=== PATIENT | male | born 1945 | race Caucasian/White ===

== ENCOUNTER 2018-10-05 13:10 | Observation (INO) | payer MEDICARE ==
[~2018-10-05] VITALS: Ht 170.2 cm; Wt 101.5 kg
[2018-10-05] VITALS (12 sets, daily range): BP systolic 119–134; BP diastolic 54–63
[~2018-10-05 13:10] MED LIST: CARVEDILOL12.5 MG PO; COQ-10100 MG PO; COZAAR 50 MG TA50 M2 PO; CRESTOR10 MG PO; FISH OIL 1,001000 M2 PO; VITAMIN D1000 UNI1 PO
--- NOTE | 2018-10-05 13:30 | NUR ---
SEE CODE STEMI SHEET FOR INFORMATION.
[2018-10-05] MEDS ORDERED: CHLORTHALIDONE25 MG PO (13:37)
[2018-10-05] MEDS ORDERED: VITAMIN C100 MG PO (13:37)
[2018-10-05 13:38] LABS: ABSOLUTE BASOPHILS 0.1 thou/uL (0.0-0.2); ABSOLUTE EOSINOPHILS 0.2 thou/uL (0.0-0.7); ABSOLUTE LYMPHOCYTES 0.8 thou/uL (0.8-5.3); ABSOLUTE MONOCYTES 1.8 thou/uL (0.0-1.2); BASOPHILS 0.4 %; EOSINOPHILS 1.3 %; HEMATOCRIT 35.4 % (42.0-52.0); HEMOGLOBIN 12.1 gm/dL (14.0-18.0); LYMPHOCYTES 6.3 %; MCHC 34.1 g/dL (28.0-37.0); MCV 96.7 fL (80.0-100.0); MONOCYTES 14.3 %; MPV 7.5 fl. (7.2-11.1); NUCLEATED RBCS 0 /100WBC; PLATELET COUNT* 221 thou/uL (150-400); POLYS 77.7 %; RBC 3.66 mil/uL (4.50-6.00); RDW-CV 12.5 % (10.5-14.5); WBC 12.9 thou/uL (4.0-11.0)
[2018-10-05] MEDS ORDERED: VITAMIN B-12500 MCG PO (13:38)
[2018-10-05] MEDS ORDERED: CLOPIDOGREL75 MG PO (13:38)
[2018-10-05] MEDS ORDERED: IRON325 PO (13:38)
[2018-10-05] MEDS ORDERED: CO Q-10100 MG PO (13:38)
[2018-10-05] MEDS ORDERED: GLUCOSAMINE CH1 EAC8 PO (13:39)
[2018-10-05] MEDS ORDERED: BENICAR20 MG PO (13:39)
[2018-10-05] MEDS ORDERED: PROTONIX40 M1 PO (13:39)
[2018-10-05] MEDS ORDERED: FIBERCON625 M1 PO (13:40)
[2018-10-05] MEDS ORDERED: PRAVASTATIN SOD20 MG PO (13:40)
[2018-10-05] MEDS ORDERED: SERTRALINE HCL50 MG PO (13:41)
[2018-10-05] MEDS ORDERED: PRESERVISION A1 EAC2 PO (13:41)
[2018-10-05] MEDS ORDERED: THERAGRAN-M PR1 EAC1 PO (13:41)
[2018-10-05 13:46] LABS: ANION GAP 8 mmol/L (7-16); BUN 26 mg/dL (7-18); CALCIUM 8.7 mg/dL (8.5-10.1); CHLORIDE 95 mmol/L (98-107); CO2 28 mmol/L (21-32); CREATININE 1.2 mg/dL (0.6-1.3); GLUCOSE 114 mg/dL (70-99); POTASSIUM 4.2 mmol/L (3.5-5.1); SODIUM 131 mmol/L (136-145)
[2018-10-05 13:50] LABS: APTT 27.2 Seconds (25.0-31.3); PROTIME 10.5 Seconds (9.20-11.50)
[2018-10-05 13:56] LABS: ALBUMIN 3.6 g/dL (3.4-5.0); ALKALINE PHOSPHATASE 67 U/L (46-116); NT-PRO BRAIN NAT PEPTIDE 249 pg/mL (<300); SGOT 15 U/L (15-37); SGPT 26 U/L (30-65); TOTAL BILIRUBIN 0.6 mg/dL (<0.1-1.0); TOTAL PROTEIN 7.2 g/dL (6.4-8.2); TROPONIN-I LEVEL <0.06 ng/mL (<0.06)
--- NOTE | 2018-10-05 17:07 | EKG ---
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: [place] : 1945 Requested By: Beata Baldwin Order Number: [id number] MD: Kody Eng Measurements Intervals [place] Rate: 71 P: -35 [place]: 51 QRS: 24 QRSD: 105 T: 71 QT: 396 QTc: 431 Interpretive Statements Sinus rhythm ST elevation, consider inferior injury Compared to ECG 03/11/2016 10:32:11 ST (T wave) deviation now present Myocardial infarct finding now present Electronically Signed On 10-05-2018 17:07:02 CDT by Kody Eng [email or web address] <ELECTRONICALLY SIGNED> By: Kody Eng MD, FACC 10/05/18 1707 1322 1322 Kody Eng MD, FAC /EPI
--- NOTE | 2018-10-05 18:14 | CARD ---
[address] [address] CARDIAC CATH REPORT Name: OSIRIS FISHER Room: [address] IN .R.#: [id number] Admission: 10/05/18 Attend Phys: Kody Eng MD Discharge: Date of : 49 Report #: [id number] THIS REPORT FOR: //name// APPROVED REPORT Study performed: 10/05/2018 13:27:13 Patient Details Patient Status: ED Room #: The patient is a 73 year-old male Event Personnel Eran Martinez Teacher Selection Specialist, Brook Baker RN Hides Inspector, Esau Cook (R) Monitor, Maria Elena Malin RTR Scrub, Gigi Hinojosa SENIOR MOBILE APPLICATION DEVELOPER Scrub, Serenity Chiang RTR Monitor Procedures Performed JOHN Place w/wo Plasty Single CIRC [id number] JOHN Place w/wo Plasty Single LAD 333883 Indication Chest pain Risk Factors Arterial Hypertension, Hypercholesterolemia, Coronary Artery Disease Admission/Lab Medications/Medications given during procedure Glycoprotein IllbIlla Inhibitors, Heparin Unfract. Procedure Narrative The patient was brought urgently to the Cardiac Catheterization Laboratory and was prepped and draped in a sterile manner. The right wrist was infiltrated with 1% Lidocaine subcutaneous anesthesia. A Slender Glidesheath sheath was inserted into the right radial artery. Coronary angiography was performed using coronary diagnostic catheters. The right coronary system was accessed and visualized with a JR4 catheter. The left coronary system was accessed and visualized with a JL4 catheter. Closure device was deployed with a 6 Fr Vasc-Band Reg 24cm. The patient tolerated the procedure well and there were no complications associated with the procedure. There was no hematoma. Intraoperative [place] [address] CARDIAC CATH REPORT Name: OSIRIS FISHER Room: [address] IN [facility]#: [id number] Admission: 10/05/18 Attend Phys: Kody Eng MD Discharge: Date of : 49 Report #: [id number] Sedation start time: 1404 Case end Time: 1514 Fentanyl 50 mcg Versed 1 mg Fluoro Time: 26.5 minutes Dose: DAP 311948 cGycm2 3476 mGy Contrast Type and Amount: Visipaque 240 ml Coronary Angiography The patient's coronary anatomy is right dominant. Diagnostic Cath Left Main 0% stenosis LAD 80% mid stenosis noted followed by a more distal 50% stenosis Circumflex long 90% stenosis noted in the mid circumflex Right Coronary 30% proximal stenosis noted RPLV 50% mid stenosis noted Left Ventriculography Left Ventriculography was not performed. Hemodynamics The aortic pressure is 107/52 mmHg with a mean of 65 mmHg. PCI Technique Lesion Anticoagulation was achieved with Heparin. bolus of iv aggrastat given Patient was preloaded with Plavix. Percutaneous coronary intervention was performed on the mid left anterior descending artery segment. The lesion stenosis prior to intervention was 80% with ROSSY 3 flow. A 6F XB 4.0 Guide Catheter was used to engage the lm ostium. A IG: BMW 190cm Interventional Guidewire was used to cross the lesion. BALLOON DILATION A Balloon catheter Trek RX 2.5 X 12 was inserted and inflated up to 16.00atm for 10seconds. Repeat angiography revealed the following post-dilatation results: 50% stenosis. Additional Inflation: 16.00atm for 7seconds. STENT DEPLOYMENT A bare metal stent Vision RX 2.75 X 12 was inserted and inflated up to 16.00atm for 13seconds. Repeat angiography revealed the following post-stent deployment results: 0% stenosis. Additional Inflation: 18.00atm for 14seconds. Tortuous aorta made torqueing the catheter difficult. A kink was noted to occur in the distal [place] [address] CARDIAC CATH REPORT Name: OSIRIS FISHER Room: [address]#: [id number] Admission: 10/05/18 Attend Phys: Kody Eng MD Discharge: Date of : 49 Report #: [id number] Unable to advance drug eluting stent nor 3.0 x 15 mm bare metal stent to area of stenosis because of tortuous lad. Use of ann wire allowed placement of 2.75 x 12 mm bare metal stent to area of stenosis. Spasm appeared to occur in mid lad after straightening vessel with ann wire. Final angiography reveals 0 % stenosis with ROSSY 3 flow. PCI Technique Lesion 2 Percutaneous Coronary Intervention was performed on the mid circumflex artery segment. Patient was preloaded with Plavix. Percutaneous coronary intervention was performed on the mid circumflex artery segment. The lesion stenosis prior to intervention was 90% with ROSSY 3 flow. A 6F XB 4.0 Guide Catheter was used to engage the lm ostium. A IG: BMW 190cm Interventional Guidewire was used to cross the lesion. Balloon Dilation A Balloon catheter Trek RX 2.5 X 12 was inserted and inflated up to 14.00atm for 13seconds. Repeat angiography revealed the following post-dilatation results: 50% stenosis. Additional Inflation: 16.00atm for 12seconds. Additional Inflation: 16.00atm for 7seconds. Because of tortuous aorta, torqueing of guiding catheter was difficult. A kink was noted to develop in the distal guideing catheter. Unalbe to advance drug eluting stent to area of stenosis. Use of ann wire allowed advancement of bare metal stent to area of stenosis. Stent Deployment A bare metal stent CATH VISION RX 3.0 X 23 was inserted and inflated up to 9.00atm for 12seconds. Repeat angiography revealed the following post-stent deployment results: 0% stenosis. Additional Inflation: 11.00atm for 14seconds. Final angiography reveals 0 % stenosis with ROSSY 3 flow. Conclusion 1. 80% stenosis of mid lad, and 90% stenosis of mid circumflex 2. Difficulty advancing drug eluting stents to area of stenosis because of tortuous vessels. 3. successful placement of bare metal stents in mid lad and circumflex 4. If repeat coronary intervention required, consider performing from the femoral approach to allow extra support. Recommendations [address] [address] CARDIAC CATH REPORT Name: OSIRIS FISHER Room: [facility] IN [place]al.#: [id number] Admission: 10/05/18 Attend Phys: Kody Eng MD Discharge: Date of : 49 Report #: [id number] Cardiac Rehabilitation Referral [facility] <ELECTRONICALLY SIGNED> By: Eran Martinez MD, FACC 10/05/18 181 13 1814Dcortez Martinez MD, FACC /INF
--- NOTE | 2018-10-05 18:33 | NUR ---
RECEIVED REPORT FROM DAYANNA POOL IN MANAGEMENT ASSISTANT. PT TRANSFERED TO [facility] FLOOR AROUND 1540, ASSUMED CARE. PT A&O X4. VSS. HEAD START ASSISTANT TEACHER PLACED TRACING SR WITH 1ST DEGREE AV BLOCK. PT ORIENTED TO ROOM BED AND CALL LIGHT. VITALS PER POST CATH PROTOCOL. RIGHT RADIAL SITE FREE FROM BLEEDING; IN PROCESS OF LETTING AIR OUT OF VASCBAND. AT BEDSIDE. MEDS PER EMAR. PT DENIES PAIN. PT TOLERATING DIET. UP WITH SBA TO BATHROOM TO VOID. PT HOPEFUL TO GO HOME TOMORROW. PT CURRENTLY SITTING UP IN BEDSIDE CHAIR. LOW FALL RISK PRECAUTIONS IN PLACE. CALL LIGHT IS WITHIN REACH. HOURYL ROUNDING PERFORMED. WCTM FOR DURATION OF SHIFT.
--- NOTE | 2018-10-05 20:00 | NUR ---
RECEIVED REPORT AND ASSUMED CARE OF PT, ASSESSMENT COMPLETED. DECREASING PRESSURE IN BAND. C/O NUMBNESS IN RT THUMB, ABLE TO MOVE FINGERS WITH GOOD CAP REFILL. TELEMETRY ON SHOWING SR WITH 1ST AVB AND BBB. AT BEDSIDE AND STAYING THE NIGHT. WILL CONT TO MONITOR AND ASSIST NEEDED.
[2018-10-06] VITALS: BP 155/68
[2018-10-06 04:00] VITALS: BP 133/53
--- NOTE | 2018-10-06 07:00 | NUR ---
SLEPT WELL. UP TO BR AND BACK WITH STEADY GAIT. INITALLY WAS HAVING CHEST PAIN WITH DEEP BREATHS BUT SUBSIDED THIS AM. TELEMETRY CONT TO SHOW SR WITH 1ST AVB AND BBB. RT WRIST REMAINS INTACT WITHOUT HEMATOMA OR DRAINAGE. NO CHANGE IN ASSESSMENT. HS GOALS OF REST AND SAFETY ACHIEVED. HOURLY ROUNDING OBSERVED.
[2018-10-06 07:28] LABS: HEMATOCRIT 33.3 % (42.0-52.0); HEMOGLOBIN 11.3 gm/dL (14.0-18.0); MCV 96.9 fL (80.0-100.0); MPV 7.9 fl. (7.2-11.1); RBC 3.43 mil/uL (4.50-6.00); RDW-CV 12.5 % (10.5-14.5); WBC 15.7 thou/uL (4.0-11.0)
[2018-10-06 07:30] VITALS: BP 162/53
[2018-10-06 07:45] LABS: ANION GAP 9 mmol/L (7-16); BUN 21 mg/dL (7-18); CALCIUM 9.3 mg/dL (8.5-10.1); CHLORIDE 97 mmol/L (98-107); CHOLESTEROL 123 mg/dL (<200); CO2 25 mmol/L (21-32); GLUCOSE 184 mg/dL (70-99); HDL CHOLESTEROL 56 mg/dL (>40); LDL CHOLESTEROL 58 mg/dL (<100); SERUM ASSESSMENT Clear; SODIUM 131 mmol/L (136-145); TC:HDL 2.2 Ratio (Not establshd); TRIGLYCERIDE 48 mg/dL (<150); TROPONIN-I LEVEL 0.35 ng/mL (<0.06); VLDL 10 mg/dL (<40)
--- NOTE | 2018-10-06 09:17 | EKG ---
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: : 1945 Requested By: Eran Martinez Order Number: [id number] Delroy MD: Eran Martinez Measurements Intervals [place] Rate: 72 P: -46 [place]: 255 QRS: 12 QRSD: 85 T: 64 QT: 393 QTc: 431 Interpretive Statements Sinus or ectopic atrial rhythm Prolonged MI interval ST elevation suggests acute pericarditis Baseline wander in lead(s) V1 Compared to ECG 10/05/2018 13:22:29 Ectopic atrial rhythm now present ST (T wave) deviation still present Electronically Signed On 10-06-2018 9:17:25 CDT by Eran Martinez [email or web address] <ELECTRONICALLY SIGNED> By: Eran Martinez MD, [facility] 10/06/18 0917 172 172 Eran Martinez MD, [facility] /EPI
[2018-10-06] MEDS ORDERED: PRAVACHOL20 MG PO (10:15)
[2018-10-06] MEDS ORDERED: TYLENOL325 MG PO (10:26)
[2018-10-06] MEDS ORDERED: NITROGLYCERIN0.4 MG SUBLING (10:27)
[2018-10-06] MEDS ORDERED: CILOSTAZOL 100100 M1 PO (10:28)
--- NOTE | 2018-10-06 10:29 | D ---
[facility] [address] [place] [address] DISCHARGE SUMMARY Name: OSIRIS FISHER Room: [address] IN .R.#: [id number] Admission: 10/05/18 Attend Phys: Kody Eng MD Discharge: Date of : 49 Report #: [id number] THIS REPORT FOR: //name// CC: [facility] physician/PCP AISHA Eng DATE OF SERVICE: 10/06/2018 DISCHARGE DIAGNOSES: 1. Unstable angina. 2. Coronary artery disease. 3. Hypertension. 4. Hyperlipidemia. 5. Aspirin allergy. 6. History of anemia. CONSULTANTS: None. PROCEDURES: Urgent coronary angiography with placement of bare metal stents in the circumflex and left anterior descending artery via the radial artery. HISTORY OF PRESENT ILLNESS: The patient is a 73-year-old white male who came to the Emergency Room complaining of chest pain. The patient apparently had a heart catheterization years ago at [facility] and was found to have only mild coronary artery disease. He did not require stenting at that time. He has been followed by a dental laboratory worker in [facility] since that time. He apparently had a stress test last year and was told there was no significant progression of his coronary artery disease. The patient stays active, mowing the yard. He was doing well until the day of admission. He had pain in his chest, became short of breath, diaphoretic, and had some arm pain. He went to urgent care at [facility]. He was noted to have ECG changes and he was transferred to [facility] for cardiac evaluation. On arrival here, his pain had improved. PAST MEDICAL HISTORY: He has had no major surgical procedures. He has a history of hypertension, hyperlipidemia. Apparently, in the past he was given Plavix and was noted to be anemic. He had upper and lower endoscopy. No source of bleeding was noted. He has been on iron supplements. CURRENT MEDICATIONS: Consist of carvedilol, chlorthalidone, Plavix, iron, Benicar, Protonix, Pravachol, Zoloft. ALLERGIES: He has a true ASPIRIN allergy having his lips swell. PHYSICAL EXAMINATION: [place] [address] DISCHARGE SUMMARY Name: OSIRIS FISHER Room: [address]#: [id number] Admission: 10/05/18 Attend Phys: Kody Eng MD Discharge: Date of : 49 Report #: [id number] GENERAL: Revealed an elderly male, appeared in mild distress. VITAL SIGNS: Blood pressure 126/50. His pulse is 70, he is afebrile. HEENT: He was anicteric. Mucous membranes moist. NECK: Veins do not appear distended. CHEST: Clear to auscultation. CARDIAC: Regular rate and rhythm. ABDOMEN: Obese. EXTREMITIES: Had no pitting edema. DIAGNOSTIC DATA: His ECG showed a sinus rhythm with minimal ST elevation in lead II, but no reciprocal changes. His workup, he had a portable chest x-ray that showed normal heart size, clear lung thompson. LABORATORY WORK: Sodium 131, creatinine 1.0, glucose was 105. Liver function studies were normal. Troponin 0.06. Cholesterol 123, triglyceride 48, HDL 56, LDL 58. White blood cell count 12.9, hemoglobin 12.1. HOSPITAL COURSE: The patient was felt to be having an acute coronary syndrome. There was no evidence of a STEMI. He was seen by my partner, Dr. Eng in the Emergency Room. I performed emergent cardiac catheterization from the right radial artery. No ventriculogram was performed. He was noted to have a discrete 80% narrowing of the mid LAD and a 90% narrowing of the mid circumflex artery. The right coronary artery had only 30% stenosis. He was given heparin and Aggrastat. The patient had been on Plavix. Again, he has an ASPIRIN allergy. His aorta was noted to be tortuous, making the procedure difficult. If further intervention was necessary, I would consider performing the procedure from the femoral artery. I first performed balloon angioplasty of the circumflex. Because of tortuosity, additional ann wire support was required. I was unable to place a drug-eluting stent. However, I placed a bare metal stent. The circumflex was a good result. I then performed balloon angioplasty of the left anterior descending. Again, because of tortuosity, ann support wire was required to place a bare metal stent in the LAD. Again, I could not place a drug-eluting stent. He tolerated the procedure well. He had no further chest pain, arrhythmias or heart failure. Prior to discharge, the patient ambulated without any further complaints. Additional lab work following the procedure included a creatinine 1.0. His troponin was noted increased to 0.35. Followup ECG showed a sinus rhythm with no significant ST segment changes. Prior to discharge, the patient was ambulating in the halls. He had no hematoma in the wrist. He was discharged on his home medications that included carvedilol 12.5 mg twice a day, chlorthalidone 25 mg a day, Plavix 75 mg a day. Because of his ASPIRIN allergy, he was sent home on Pletal 100 mg twice a day, which he takes for at least several months following placement of stents. He was to continue iron supplements because of history of anemia. He was to continue Benicar 20 mg a day for hypertension, Protonix 40 mg a day, Pravachol 20 mg a day, sertraline 50 mg a day. He was given a prescription for nitroglycerin to take as needed for chest pain. He [place] [address] DISCHARGE SUMMARY Name: OSIRIS FISHER Room: [address] IN [facility].#: [id number] Admission: 10/05/18 Attend Phys: Kody Eng MD Discharge: Date of : 49 Report #: [id number] Sloan for routine medical care including management of his hypertension. At the time of discharge, he had blood pressure of 140/60, pulse 90 and he is afebrile. He is scheduled to see my nurse practitioner in 1 week. I did recommend he enroll in cardiac rehabilitation here at [facility]. I plan on seeing him in the Cardiology Clinic in 8 weeks for followup. <ELECTRONICALLY SIGNED> By: Eran Martinez MD, [facility] 10/06/18 1029 0823 0948Dalizzy Martinez MD, [facility] /
[2018-10-06] MEDS ORDERED: CARVEDILOL12.5 MG PO (10:32)
[2018-10-06 10:39] VITALS: BP 162/53
--- NOTE | 2018-10-06 12:29 | NUR ---
ASSUMED PT CARE AT 0800, AOX4, UP AD JESSENIA, O2 SAT 90'S RA. TRACING SR, 1ST DEGREE ON TELE. DENIES PAIN. PT CATH SITE INTACT. PT FOR DISCHARGE. VSS, AM ASSESSMENT CHARTED. MEDS GIVEN PER MAR. HOURLY ROUNDING CALL LIGHT WITHIN REACH. WILL CONTINUE TO MONITOR.
[2018-10-06 12:49] VITALS: BP 162/53
--- NOTE | 2018-10-06 14:00 | 2DMMODE ---
[place] [address] 2 D/M-MODE ECHOCARDIOGRAM Name: OSIRIS FISHER Room: [address] Bob Roman#: [id number] Admission: 10/05/18 Attend Phys: Kody Eng, Discharge: 10/06/18 Date of : 49 Date of Service: 10/06/18 1400 Report #: [id number] THIS REPORT FOR: //name// APPROVED REPORT Study performed: 10/06/2018 09:45:22 EXAM: Comprehensive 2D, Doppler, and color-flow Echocardiogram Patient Location: In-Patient Room #: 220 Status: routine BSA: 2.12 HR: 96 bpm BP: 162/53 mmHg Rhythm: NSR Other Information Study Quality: Good Indications Acute NY Chest Pain 2D Dimensions IVSd: 13.20 (7-11mm) LVOT Diam: 19.21 (18-24mm) LVDd: 48.45 mm PWd: 11.44 (7-11mm) Ascending Ao: 34.37 (22-36mm) LVDs: 24.55 (25-40mm) Aortic Root: 33.36 mm Volumes Left Atrial Volume (Systole) LA ESV Index: 28.50 mL/m2 Aortic Valve AoV Peak Moreno.: 2.44 m/s AO Peak Gr.: 23.78 mmHg LVOT Max P.85 mmHg AO Mean Gr.: 13.09 mmHg LVOT Mean P.11 mmHg LVOT Max V: 1.57 m/s AO V2 VTI: 42.45 cm LVOT Mean V: 1.04 m/s FISH (VTI): 2.22 cm2 LVOT V1 VTI: 32.53 cm Mitral Valve E/A Ratio: 0.83 MV Decel. Time: 144.14 [place] [address] 2 D/M-MODE ECHOCARDIOGRAM Name: OSIRIS FISHER [address] [id number] Admission: 10/05/18 Attend Phys: Kody Eng, Discharge: 10/06/18 Date of : 49 Date of Service: 10/06/18 1400 Report #: [id number] MV E Max Moreno.: 1.14 m/s MV PHT: 41.80 ms MVA (PHT): 5.26 cm2 TDI E/Lateral E': 12.67 E/Medial E': 10.36 Medial E' Moreno.: 0.11 m/s Lateral E' Moreno.: 0.09 m/s Pulmonary Valve PV Peak Moreno.: 1.57 m/s PV Peak Gr.: 9.83 mmHg Tricuspid Valve RAP Estimate: 5.00 mmHg TR Peak Gr.: 36.16 mmHg RVSP: 41.00 mmHg PA Pressure: 41.00 mmHg Left Ventricle The left ventricle is normal size. There is normal LV segmental wall motion. Mild concentric left ventricular hypertrophy. Left ventricular systolic function is normal. The left ventricular ejection fraction is within the normal range. LVEF is 65-70%. Grade I - abnormal relaxation pattern. Right Ventricle The right ventricle is normal size. The right ventricular systolic function is normal. Atria Left atrium is mildly dilated. The right atrium size is normal. Aortic Valve Mild aortic valve sclerosis. No aortic regurgitation is present. There is no aortic valvular stenosis. Mitral Valve The mitral valve is normal in structure. There is no mitral valve regurgitation noted. No evidence of mitral valve stenosis. Tricuspid Valve The tricuspid valve is normal in structure. Trace tricuspid regurgitation. estimated pa pressure 45 mm Hg Pulmonic Valve The pulmonary valve is normal in structure. [place] [address] 2 D/M-MODE ECHOCARDIOGRAM Name: TUYETPAULETTE SALGUEROALONDRA Marino [address] [id number] Admission: 10/05/18 Attend Phys: Kody Eng, Discharge: 10/06/18 Date of : 49 Date of Service: 10/06/18 1400 Report #: [id number] regurgitation. Great Vessels The aortic root is normal in size. IVC is normal in size and collapses >50% with inspiration. Pericardium There is no pericardial effusion. <Conclusion> Mild concentric left ventricular hypertrophy. LVEF is 65-70%. Left atrium is mildly dilated. Mild aortic valve sclerosis. <ELECTRONICALLY SIGNED> By: Eran Martinez MD, FACC 10/06/18 1400 1400 1400 Eran Martinez MD, FACC /INF
--- NOTE | 2018-10-06 14:32 | NUR ---
DISCHARGED PLAN DISCUSSED WITH PT. MEDICATION PACKET/SCRIPT GIVEN. CATH SITE CARE ADVISED. IV, TELE REMOVED. REMINDED TO FOLLOW UP WITH CARDIOLIGY, PCP. ALL BELONGINGS PACKED AND CHECKED. LEFT THE UNIT AMBULATORY 1300.
--- NOTE | 2018-10-07 13:06 | CON ---
[address] [address] CONSULTATION Name: OSIRIS FISHER Room: [address] Bob Roman#: [id number] Admission: 10/05/18 Attend Phys: Kody Eng MD Discharge: 10/06/18 Date of : 49 Report #: [id number] THIS REPORT FOR: //name// CC: Dr. Sloan [facility] physician/PCP Kody Eng DATE OF SERVICE: 10/05/2018 CARDIOLOGY CONSULT INDICATION: Acute chest pain with ST elevations consistent with ST elevation myocardial infarction. HISTORY OF PRESENT ILLNESS: The patient is a very pleasant 73-year-old gentleman with history of coronary artery disease based on previous catheterization. Apparently at that time, there was note of occlusive disease that was not intervened upon due to an aspirin allergy. He has been on Plavix 75 mg daily. He had been in his usual state of health until last night when he started to have some unusual shoulder discomfort. The patient was able to sleep through the night, woke up this morning with chest discomfort, which he felt was due to gas. He drank carbonated beverage without relief. The pain has been progressive throughout the morning and afternoon. The patient presented to the Emergency Room via EMS. EKG shows subtle ST elevation in the inferior and anterolateral leads. The patient does state the pain is definitely worse with deep inspiration. He has had no recent fevers, chills, or sweats. He denies any significant shortness of breath or orthopnea. He is without palpitations. He is without other cardiac complaints. PAST MEDICAL HISTORY: 1. Coronary artery disease. 2. Type 2 diabetes mellitus. 3. Hypertension. 4. Hyperlipidemia. 5. History of chewing tobacco use, which he quit 6 months ago. 6. Seasonal allergies. ALLERGIES: ASPIRIN AND IODINE. CURRENT MEDICATIONS: Fish oil 1500 mg daily, Crestor 20 mg daily, carvedilol 6.25 mg b.i.d., losartan 50 mg daily, CoQ10 100 mg daily, vitamin D 1000 units daily. FAMILY HISTORY: Noncontributory. SOCIAL HISTORY: The patient quit drinking alcohol 6 months [place] [address] CONSULTATION Name: OSIRIS FISHER [address]: [address] [id number] Admission: 10/05/18 Attend Phys: Kody Eng MD Discharge: 10/06/18 Date of : 49 Report #: [id number] chewing tobacco 6 months ago. REVIEW OF SYSTEMS: Positive for complaints outlined above, otherwise unremarkable. PHYSICAL EXAMINATION: VITAL SIGNS: Blood pressure 134/78, pulse 82 and regular. GENERAL: This is a pleasant gentleman who is in moderate distress from discomfort. He is alert and oriented x 3. HEENT: Head is normocephalic, atraumatic. Extraocular muscles intact. Mucous membranes moist. NECK: Shows no jugular venous distention. There are no carotid bruits. CHEST: Reveals clear lung thompson without wheezes or rales. CARDIOVASCULAR: Reveals regular rhythm without gallop or murmur. ABDOMEN: Reveals normal bowel sounds. The abdomen is soft, nontender. EXTREMITIES: Shows no edema. SKIN: Warm and dry. LABORATORY DATA: A 12-lead EKG shows 1-mm ST segment elevation in leads aVL, 2, and V4. I do not appreciate pathologic Q-waves. Labs are pending at this time. Chest x-ray is pending at this time. IMPRESSION AND RECOMMENDATIONS: 1. Chest discomfort with subtle ST elevation and EKG suggesting inferior ST-elevation myocardial infarction. The patient will be transported to the cardiac catheterization lab for left heart catheterization and coronary angiography. Further intervention will be pending the results of that study. 2. Coronary artery disease. The patient is allergic to aspirin. Continue Plavix daily. 3. Hyperlipidemia. Continue current statin agent. 4. Type 2 diabetes mellitus. We will treat per primary physician. <ELECTRONICALLY SIGNED> By: Kody Eng MD, FACC 10/07/18 1306 1338 1425Micdonna Eng MD, FACC /nt
== END 2018-10-06 13:13 | disposition home or self-care (01) ==
LOC: M.ERS 13:10 → M.2W 13:47 → M.TBA-ER 13:47 → M.2W 13:47
PROVIDERS: Internal Medicine Cardiovascular Disease; Personal Emergency Response Attendant; ADMIT Internal Medicine Cardiovascular Disease
DX: I25.110 Atherosclerotic heart disease of native coronary artery with unstable angina pectoris (principal); R07.89 Other chest pain; E78.5 Hyperlipidemia, unspecified; E11.9 Type 2 diabetes mellitus without complications; I10 Essential (primary) hypertension; D64.9 Anemia, unspecified; E78.00 Pure hypercholesterolemia, unspecified; Z87.891 Personal history of nicotine dependence; Z91.048 Other nonmedicinal substance allergy status; Z79.82 Long term (current) use of aspirin

== ENCOUNTER 2019-09-18 10:24 | Emergency (ER) | payer MEDICARE ==
[~2019-09-18] VITALS: Ht 170.2 cm; Wt 93.0 kg
[~2019-09-18 10:24] MED LIST changes: +BENICAR20 MG PO; +CHLORTHALIDONE25 MG PO; +CILOSTAZOL 100100 M1 PO; +CLOPIDOGREL75 MG PO; +CO Q-10100 MG PO; +FIBERCON625 M1 PO; +GLUCOSAMINE CH1 EAC8 PO; +IRON325 PO; +NITROGLYCERIN0.4 MG SUBLING; +PRAVACHOL20 MG PO; +PRAVASTATIN SOD20 MG PO; +PRESERVISION A1 EAC2 PO; +PROTONIX40 M1 PO; +SERTRALINE HCL50 MG PO; +THERAGRAN-M PR1 EAC1 PO; +TYLENOL325 MG PO; +VITAMIN B-12500 MCG PO; +VITAMIN C100 MG PO
[2019-09-18 11:10] VITALS: BP 155/73
== END 2019-09-18 11:10 | disposition home or self-care (01) ==
LOC: M.ERS 10:24
DX: H92.02 Otalgia, left ear (principal); I10 Essential (primary) hypertension; E11.9 Type 2 diabetes mellitus without complications; K21.9 Gastro-esophageal reflux disease without esophagitis; F17.210 Nicotine dependence, cigarettes, uncomplicated; Z88.6 Allergy status to analgesic agent; Z91.041 Radiographic dye allergy status